=== PATIENT | female | born 1955 | race Caucasian/White ===

== ENCOUNTER 2024-01-22 19:39 | Emergency (ER) | payer OTHER ==
[~2024-01-22] VITALS: Ht 165.1 cm; Wt 68.0 kg
[2024-01-22] MEDS ORDERED: IBUP-1955 PO (19:51)
[2024-01-22] MEDS ORDERED: OMEP20TA20 PO (19:51)
[2024-01-22] MEDS ORDERED: LORA0.5T48 PO (19:51)
[2024-01-22] MEDS ORDERED: CARV3.12 PO (19:51)
[2024-01-22] MEDS: MORPHINE SULFATE 2 MG/1 ML DISP.SYRIN IV ONE (20:15)
[2024-01-22 20:36] VITALS: O2SAT 97
[2024-01-22 20:43] LABS: BASOPHILS % (AUTO) 0.6 % (0.0-2.0); EOSINOPHILS # (AUTO) 0.1 K/uL (0.0-0.7); EOSINOPHILS % (AUTO) 1.5 % (0.0-7.0); HEMATOCRIT 41.1 % (31.2-41.9); HEMOGLOBIN 13.9 g/dL (10.9-14.3); LYMPHOCYTES % (AUTO) 24.3 % (20.5-51.5); MEAN CORPUSCULAR HEMOGLOBIN 32.3 uug (24.7-32.8); MEAN CORPUSCULAR HGB CONC 34 g/dL (32.3-35.6); MEAN CORPUSCULAR VOLUME 95.3 fL (75.5-95.3); MONOCYTES # (AUTO) 0.8 K/uL (0.1-1.30); MONOCYTES % (AUTO) 9.5 % (0.0-11.0); NEUTROPHILS # (AUTO) 5.4 K/uL (1.8-8.9); NEUTROPHILS % (AUTO) 64.1 % (38.5-71.5); PLATELET COUNT (AUTO) 257 K/uL (179-408); RED BLOOD CELL COUNT(AUTO) 4.31 MIL/uL (3.63-4.92); RED CELL DISTRIBUTION WIDTH 13.3 % (12.3-17.7); WHITE BLOOD COUNT (AUTO) 8.4 K/uL (3.8-11.8)
[2024-01-22 20:44] LABS: CALCIUM 8.9 mg/dL (8.5-10.1); CREATININE 0.9 mg/dL (0.6-1.3); DIFFERENTIAL COMMENT 1; POTASSIUM 3.7 mmol/L (3.5-5.1)
[2024-01-22 20:49] LABS: ALBUMIN 3.3 g/dL (3.4-5.0); BILIRUBIN,TOTAL 0.4 mg/dL (0.2-1.0); TOTAL PROTEIN, SERUM 6.9 g/dL (6.4-8.2)
[2024-01-22] MEDS ORDERED: HYDROMORPHONE 1 MG/1 ML DISP.SYRIN ONE (22:55)
[2024-01-22] MEDS: HYDROMORPHONE 1 MG/1 ML DISP.SYRIN IV ONE (23:04)
[2024-01-22] MEDS: NEOMY/BACITRA/POLYMYXIN B OINT UD PACKET TP ONE (23:15)
[2024-01-23] MEDS ORDERED: BACITRACIN ZINC OINT 15 GM TUBE ONE (00:23)
[2024-01-23] MEDS ORDERED: HYDROMORPHONE 1 MG/1 ML DISP.SYRIN ONE (01:29)
[2024-01-23] MEDS: HYDROMORPHONE 1 MG/1 ML DISP.SYRIN IV ONE (01:36)
== END 2024-01-23 02:00 | disposition short-term general hospital (02) ==
LOC: ER 19:41
DX: S06.0X0A Concussion without loss of consciousness, initial encounter (principal); S22.20XA Unspecified fracture of sternum, initial encounter for closed fracture; R03.0 Elevated blood-pressure reading, without diagnosis of hypertension; K21.9 Gastro-esophageal reflux disease without esophagitis; Z79.1 Long term (current) use of non-steroidal anti-inflammatories (NSAID); Z90.49 Acquired absence of other specified parts of digestive tract; Z79.899 Other long term (current) drug therapy; W18.39XA Other fall on same level, initial encounter; Y93.89 Activity, other specified; Y92.89 Other specified places as the place of occurrence of the external cause; Y99.8 Other external cause status
CPT/HCPCS: 36415; 70450; 71250; 84484; 85025; 85610; 85730; 93005; A4606; A4663; J1170; J2270